=== PATIENT | female | born 1980 | race Two or more races ===

== ENCOUNTER 2023-01-29 13:26 | Outpatient (CLI) | payer OTHER | END 2023-01-29 13:44 | disposition home or self-care (01) | LOC: MAMO-SONO 13:26 | PROVIDERS: ATTEND Obstetrics & Gynecology | DX: Z12.31 Encounter for screening mammogram for malignant neoplasm of breast (principal); N60.11 Diffuse cystic mastopathy of right breast; N60.12 Diffuse cystic mastopathy of left breast ==

== ENCOUNTER 2024-09-28 08:55 | Outpatient (CLI) | payer OTHER | END 2024-09-28 09:00 | disposition home or self-care (01) | LOC: MAMO-SONO 08:55 | PROVIDERS: ATTEND Obstetrics & Gynecology | DX: N60.11 Diffuse cystic mastopathy of right breast (principal); N60.12 Diffuse cystic mastopathy of left breast ==